=== PATIENT | male | born 1990 | race Hispanic/Latino ===

== ENCOUNTER 2019-03-22 08:59 | Emergency (ER) | payer SELFPAY ==
--- NOTE | 2019-03-22 09:31 | Emergency Department Report ---
ED Chest Pain HPI - General Chief Complaint: Chest Pain Stated Complaint: CHEST PAIN Time Seen by Provider: 03/22/19 09:17 Source: patient Mode of arrival: Ambulatory Limitations: No Limitations - History of Present Illness Initial Comments: 28-year-old male presents to the emergency department with a complaint of some left-sided chest pain that started this morning. He denies any shortness of breath, fever, vomiting, back pain or diaphoresis. The patient admits that this occurs sometimes "after I stop drinking" and the patient admits to doing some recent binge drinking with his last drink consumed last night. He also admits to using some methamphetamine yesterday. He is asking for some detox or rehabilitation. He has a past medical history of asthma. He is an occasional tobacco smoker. He has not taken anything for his symptoms prior to presentation. He denies any history of DTs but says that he does have this chest pain and "the shakes" when he has stopped drinking. His primary care physician is Dr. Eze Jordan. Severity scale (0 -10): 6 - Related Data Previous Rx's Medication Instructions Recorded Last Taken Type Ondansetron [Zofran Odt] 4 mg PO Q8HR PRN #14 tab.rapdis 03/22/19 Unknown Rx Allergies Allergy/AdvReac Type Severity Reaction Status Date / Time No Known Allergies Allergy Verified 03/22/19 09:05 Heart Score - HEART Score History: Slightly suspicious EKG: Normal Age: < 45 Risk factors: 1-2 risk factors Troponin: < normal limit HEART Score: 1 - Critical Actions Critical Actions: 0-3 pts:0.9-1.7%risk of adverse cardiac event.Candidate for discharge ED Review of Systems ROS: Stated complaint: CHEST PAIN Other details as noted in HPI Comment: All other systems reviewed and negative Constitutional: denies: chills, fever Eyes: denies: eye pain, vision change ENT: denies: ear pain, throat pain Respiratory: denies: cough, shortness of breath Cardiovascular: chest pain. denies: palpitations Gastrointestinal: nausea. denies: abdominal pain, vomiting Genitourinary: denies: dysuria, discharge Musculoskeletal: denies: back pain, arthralgia Skin: denies: rash, lesions Neurological: denies: headache, weakness ED Past Medical Hx - Past Medical History Hx Asthma: Yes - Surgical History Past Surgical History?: No Hx Coronary Stent: No Hx Open Heart Surgery: No Hx Pacemaker: No Hx Internal Defibrillator: No Hx Cholecystectomy: No Hx Appendectomy: No Hx Breast Surgery: No - Social History Smoking Status: Current Every Day Smoker - Medications Home Medications: Home Medications Medication Instructions Recorded Confirmed Last Taken Type Ondansetron [Zofran Odt] 4 mg PO Q8HR PRN #14 tab.rapdis 03/22/19 Unknown Rx ED Physical Exam - General Limitations: No Limitations - Other Other exam information: GENERAL: The patient is well-developed well-nourished. HENT: Normocephalic. Atraumatic. Patient has moist mucous membranes. EYES: Extraocular motions are intact. NECK: Supple. Trachea is midline. CHEST/LUNGS: Clear to auscultation. There is no respiratory distress noted. HEART/CARDIOVASCULAR: Regular. There is no tachycardia. There is no murmur. ABDOMEN: Abdomen is soft, nontender. Patient has normal bowel sounds. There is no abdominal distention. SKIN: Skin is warm and dry. NEURO: The patient is awake, alert, and oriented. The patient is cooperative. The patient has no focal neurologic deficits. Normal speech. MUSCULOSKELETAL: There is no tenderness or deformity. There is no evidence of acute injury. ED Course Vital Signs 03/22/19 03/22/19 03/22/19 09:03 09:19 10:33 Temperature 98.2 F Pulse Rate 78 Respiratory 18 16 15 Rate Blood Pressure 115/75 Blood Pressure [Left] O2 Sat by Pulse 100 Oximetry 03/22/19 11:46 Temperature Pulse Rate 71 Respiratory 16 Rate Blood Pressure Blood Pressure 118/74 [Left] O2 Sat by Pulse 100 Oximetry YONG score - Yong Score Age > 65: (0) No Aspirin use within the Past 7 Days: (0) No 3 or more CAD Risk Factors: (0) No 2 or more Angina events in past 24 hrs: (0) No Known CAD with more than 50% Stenosis: (0) No Elevated Cardiac Markers: (0) No ST Deviation Greater than 0.5mm: (0) No YONG Score: 0 ED Medical Decision Making - Lab Data Result diagrams: 03/22/19 09:35 03/22/19 09:35 - EKG Data -: EKG Interpreted by Ut EKG shows normal: sinus rhythm, axis, intervals, QRS complexes, ST-T waves Rate: normal - EKG Data When compared to previous EKG there are: previous EKG unavailable Interpretation: normal EKG - Radiology Data Radiology results: image reviewed interpreted by me: Chest x-ray does not show any acute process. There are no pleural effusions, obvious pneumonia and there is no pneumothorax. - Medical Decision Making Patient presents with the complaint of some left-sided chest pain and some nausea without vomiting. He admits to a recent alcohol binge and his last drink was last night. He also admits to recent methamphetamine use. Patient does not appear to be currently going through any type of withdrawal. He is awake, alert, oriented, sitting comfortably and does not appear in any acute distress. EKG was done that does not show any signs of ST elevation UT, ischemia or dysrhythmia. Chest x-ray does not show any pleural effusions, pneumothorax, focal consolidation, pneumonia, or any other acute process. Labs have been mostly unremarkable including a negative troponin. Blood alcohol level was negative. Urine drug she was positive for methamphetamines and marijuana. Patient was seen by the psychiatric flux core welder was able to provide outpatient rehabilitation and detox referrals. The patient is low on the heart score and to be score. He was given a referral for primary care and cardiology for outpatient follow-up. He will return to the ER with any worsening of symptoms or any acute distress. - Differential Diagnosis alcohol withdrawal, polysubstance abuse, costochondritis, pneumonia Critical Care Time: No Critical care attestation.: If time is entered above; I have spent that time in minutes in the direct care of this critically ill patient, excluding procedure time. ED Disposition Clinical Impression: Polysubstance abuse, Atypical chest pain Alcohol dependence Qualifiers: Substance use status: uncomplicated Qualified Code(s): F10.20 - Alcohol dependence, uncomplicated Disposition: DC-01 TO HOME OR SELFCARE Is pt being admited?: No Condition: Stable Instructions: Chest Pain (ED), Abuse of Alcohol (ED), Alcohol Withdrawal (ED), Polysubstance Abuse (ED) Additional Instructions: Please follow-up with your primary care physician in the next few days. Please follow-up with the detox/rehabilitation referrals that you were given. I am also giving you a referral for a local respiratory tech, Dr. Cr, to follow-up regarding your chest pains. Return to the emergency Department with any worsening of your symptoms or any acute distress. Prescriptions: Ondansetron [Zofran Odt] 4 mg PO Q8HR PRN #14 tab.rapdis PRN Reason: Nausea Referrals: EZE JORDAN MD [Primary Care Provider] - 2-3 Days JOHNNY CR MD [Staff Physician] - 2-3 Days Forms: Work/School Release Form(ED) Time of Disposition: 11:40
[2019-03-22 09:53] LABS: Basophils % (Auto) 0.4 % (0.0-1.8); Eosinophils # (Auto) 0.2 K/mm3 (0.0-0.4); Hematocrit 43.1 % (35.5-45.6); Hemoglobin 14.8 gm/dl (11.8-15.2); Lymphocytes # (Auto) 1.8 K/mm3 (1.2-5.4); Lymphocytes % (Auto) 18.6 % (13.4-35.0); Mean Corpuscular HGB Conc 34 % (32-34); Mean Corpuscular Volume 92 fl (84-94); Monocytes # (Auto) 0.7 K/mm3 (0.0-0.8); Monocytes % (Auto) 7.4 % (0.0-7.3); Platelet Count 257 K/mm3 (140-440); Red Blood Count 4.68 M/mm3 (3.65-5.03); Red Cell Distribution Width 13.9 % (13.2-15.2)
[2019-03-22 10:00] LABS: Benzodiazepines Screen,Urine PRESUMPTIVE NEGATIVE; Cocaine Screen,Urine PRESUMPTIVE NEGATIVE; Methadone Screen,Urine PRESUMPTIVE NEGATIVE; Opiate Screen,Urine PRESUMPTIVE NEGATIVE
--- NOTE | 2019-03-22 10:00 | XRay Report ---
CHEST 2 VIEWS INDICATION / CLINICAL INFORMATION: Chest pain. COMPARISON: None available. FINDINGS: SUPPORT DEVICES: None. HEART / MEDIASTINUM: No significant abnormality. LUNGS / PLEURA: No significant pulmonary or pleural abnormality. No pneumothorax. ADDITIONAL FINDINGS: No significant additional findings. IMPRESSION: 1. No acute findings. Signer Name: Thomas Welsh MD Signed: 03/22/2019 9:55 AM Workstation Name: [id number]
[2019-03-22 10:09] LABS: Alanine Aminotransferase 15 units/L (7-56); Albumin 4.9 g/dL (3.9-5); BUN/Creatinine Ratio 13; Blood Urea Nitrogen 12 mg/dL (9-20); Calcium 9.3 mg/dL (8.4-10.2); Hemolysis Index 12
[2019-03-22] MEDS ORDERED: ZOFRAN ODT PO ONE (10:09)
[2019-03-22] MEDS ORDERED: TORADOL IM ONE (10:16)
[2019-03-22 10:22] LABS: Amphetamine Screen,Urine PRESUMPTIVE POSITIVE; Cannabinoid Screen,Urine PRESUMPTIVE POSITIVE
[2019-03-22 11:46] VITALS: BP 118/74
== END 2019-03-22 11:46 | disposition home or self-care (01) ==
LOC: ED 08:59
DX: R07.89 Other chest pain (principal); F10.20 Alcohol dependence, uncomplicated; F19.10 Other psychoactive substance abuse, uncomplicated; J45.909 Unspecified asthma, uncomplicated; F17.200 Nicotine dependence, unspecified, uncomplicated
CPT/HCPCS: 36415; 71046; 80053; 80307; 84484; 85025; 93005; 93010; J1885; 80320; 96372; G0480; Q0162